=== PATIENT | female | born 2000 | race Caucasian/White ===

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

== ENCOUNTER 2019-04-20 00:11 | Inpatient (IN) | payer OTHER ==
[2019-04-20 00:49] VITALS: BMI 25.6
[2019-04-20] MEDS ORDERED: HYDROcodone/Acetaminophen 5/325 mg Tablet PO PRN ×2 (01:19)
[2019-04-20] MEDS ORDERED: NS / Oxytocin 40 units/1000ml 1,000 ML IV PRN (01:19)
[2019-04-20] MEDS ORDERED: Ondansetron PF 4 MG/2 ML Vial IVP PRN ×2 (01:19→20:58)
[2019-04-20] MEDS ORDERED: Promethazine HCl 25 MG/ML VIAL IM PRN ×2 (01:19→20:58)
[2019-04-20] MEDS ORDERED: hydrALAZINE 20 MG/ML VIAL SLOW IVP PRN (01:19)
[2019-04-20] MEDS ORDERED: Lidocaine 1% (PF) 30 ML VIAL SC PRN (01:19)
[2019-04-20] MEDS ORDERED: Ibuprofen 800 MG TAB PO PRN (01:19)
--- NOTE | 2019-04-20 01:22 | PDOC.LDHP ---
Labor and Delivery H&P HPI: Patient of Crystal Abraham Time: 0115 Triage CC: CTX 18 yo G1 at 38 weeks 3 days with regular CTX every 3 minutes. No LOF, no VB. Good FM. She was 3cm in office previously Review of ZSXS= complete ROS performed and as per HPI. Current gestational age (weeks): 38 (3 D) Due date: 05/01/19 Dating criteria: last menstrual period Grav: 1 Current complications: none Abnormal US findings: No Current medications: pre- vitamins Previous surgical history: none Allergies/Adverse Reactions: Allergies Allergy/AdvReac Type Severity Reaction Status Date / Time No Known Allergies Allergy Verified 04/20/19 00:52 - Physical Exam Vital signs reviewed and normal: yes (116/66 98.4 16) General: NAD Heart: RRR Lungs: CTAB Abdomen: gravid Extremeties: no edema FHT: category 1 [place] contractions every: every 3-5min - Vaginal Exam cm dilated: 4 Effacement: 75% Station: -1 - Assessment L&D Assessment: term patient in labor (At early term, GBS negative) - Plan Plan: admit to L&D, informed consent obtained, anesthesia consult for pain management, other (Crystal Abraham to be notified. We are admitting due to 4cm dilation and regular CTX.)
[2019-04-20 02:31] LABS: Hemoglobin 12.8 g/dL (12.0-16.0); Mean Corpuscular Hemoglobin 32.1 pg (25.0-35.0); Mean Corpuscular Volume 94.2 fL (78.0-98.0); Mean Platelet Volume 8.1 fL (7.4-10.4); Platelet Count 195 thou/uL (130-400); RBC Distribution Width 11.5 % (11.5-14.5); Red Blood Cell (RBC) Count 3.99 mill/uL (4.00-5.20); White Blood Cell (WBC) Count 8.9 thou/uL (4.8-10.8)
[2019-04-20 03:11] LABS: HBSAg Index 0.27 S/CO (0-0.99); HIV (1/2) Antibody/Antigen Non-Reactive (NonReactive); HIV 1/2 INDEX 0.06 S/CO (<1.00); Hep B Surf Ag Non-Reactive S/CO (NonReactive)
[2019-04-20 04:37] LABS: Syphilis Antibody Nonreactive (Nonreactive); Syphilis Antibody Index 0.02 S/CO (<1.00 Non-Reactive)
[2019-04-20] MEDS ORDERED: Lidocaine 2% MPF 10 ML AMP (For Epidural Use) ONE (09:00)
--- NOTE | 2019-04-20 13:01 | PDOC.LDPN ---
Labor & Delivery Progress Note - Subjective Subjective: comfortable - Objective Vital signs reviewed and normal: yes General: breathing through contractions Dilation: 6 Effacement: 75% Station: -1 FHT: category 1 [place] contractions every: q 6-8 mins AROM: clear fluid - Assessment (1) Teen Code(s): [id number] - Current Visit: Yes Status: Acute (2) Anorexia Code(s): R63.0 - ANOREXIA Current Visit: Yes Status: Acute (3) 38 weeks gestation of Code(s): Z3A.38 - 38 WEEKS GESTATION OF Current Visit: Yes Status : Acute Plan: other (AROM )
[2019-04-20] MEDS ORDERED: Oxytocin 10 UNITS/ML VIAL ONE (18:13)
[2019-04-20] MEDS ORDERED: NS w/ Oxytocin 10 units 500 ML IV SCH (18:15)
--- NOTE | 2019-04-20 18:16 | PDOC.LDPN ---
Labor & Delivery Progress Note - Subjective Subjective: comfortable - Objective Vital signs reviewed and normal: yes General: NAD Uterine fundus: non tender Dilation: 6 Effacement: 90% Station: 0 - Assessment (1) Teen Code(s): [id number] - Current Visit: Yes Status: Acute (2) Anorexia Code(s): R63.0 - ANOREXIA Current Visit: Yes Status: Acute (3) 38 weeks gestation of Code(s): Z3A.38 - 38 WEEKS GESTATION OF Current Visit: Yes Status : Acute Plan: labor augmentation, other (cervix is unchanged. Start on pitocin for augmentation)
[2019-04-20] MEDS: Lactated Ringer's 1,000 ML IV SCH (18:26)
[2019-04-20] MEDS ORDERED: Butorphanol Tartrate 1 MG/ML VIAL SLOW IVP PRN (19:24)
[2019-04-20] MEDS ORDERED: Fentanyl 4 mcg/Bup 0.1% Cadd 100 ML ONE (20:12)
[2019-04-20] MEDS ORDERED: Lactated Ringer's 500 ML IV PRN (20:58)
[2019-04-20] MEDS ORDERED: Naloxone HCl 0.4 mg/ml Vial IVP PRN ×2 (20:58)
[2019-04-20] MEDS ORDERED: diphenhydrAMINE 50 MG/ML VIAL IVP PRN (20:58)
[2019-04-20] MEDS ORDERED: Acetaminophen 325 MG TAB PO PRN (20:58)
[2019-04-20] MEDS ORDERED: ePHEDrine/0.9% NaCl/PF SYRINGE 50 mg/10 ml SLOW IVP PRN (20:58)
[2019-04-20] MEDS ORDERED: Fentanyl 4 mcg/Bupivacaine 0.1% Cassette 100 ML EPIDURAL SCH (21:00)
[2019-04-20] MEDS ORDERED: Communication Order-Pharmacy FS SCH (21:00)
--- NOTE | 2019-04-21 | PDOC.OPDEL ---
OB Operative/Delivery Note Delivery Dr/Surgeon: Dotty cortez CNM Pre-Delivery Diagnosis: active labor Procedure/Post Delivery Dx: spontaneous vaginal delivery Weeks gestation: 38 Anesthesia: epidural - Findings A Sex: female - 1 min: 9 - 5 min: 9 - Additional Findings/Plan Placenta delivered: spontaneous Repaired Obstetrical Laceration: none Estimated blood loss: 50mL Post delivery plan: routine recovery
--- NOTE | 2019-04-21 00:42 | PDOC.PP ---
Post Progress Note Post Day #: 1 Subjective: Patient is doing well. Feeling in leg is coming back after epidural. has not breastfed yet. PO intake tolerated: yes Weight Weight 140 lb - Physical Examination General: NAD Cardiovascular: no m/r/g Respiratory: non-labored breathing Abdominal: lochia (moderate, rubra) Fundus firm & at: u Extremities: negative homans (B) Skin: no rash Neurological: no gross focal deficits Psychiatric: A&Ox3, normal affect Result Diagrams: 04/20/19 02:15 Additional Labs: Post Labs Blood Type A POSITIVE 04/20/19 03:14 Hep Bs Antigen Non-Reactive S/CO (NonReactive) 04/20/19 02:15 (1) Teen Code(s): [id number] - Status: Acute (2) Anorexia Code(s): R63.0 - ANOREXIA Status: Acute (3) 38 weeks gestation of Code(s): Z3A.38 - 38 WEEKS GESTATION OF Status: Acute - Assessment/Plan A: with NML ppd1 exam s/p P: routine care.
[2019-04-21] MEDS ORDERED: Milk Of Magnesia 30 ML UDCUP PO PRN (03:04)
[2019-04-21] MEDS ORDERED: Methylergonovine 0.2 MG/ML VIAL IM PRN (03:04)
[2019-04-21] MEDS ORDERED: HYDROcodone/Acetaminophen 5/325 mg Tablet PO PRN (03:04)
[2019-04-21] MEDS ORDERED: Bisacodyl 10 MG SUPP PR PRN (03:04)
[2019-04-21] MEDS ORDERED: Benzocaine-Menthol 82.5 ML CAN TOP PRN (03:04)
[2019-04-21] MEDS ORDERED: hydrALAZINE 20 MG/ML VIAL SLOW IVP PRN (03:04)
[2019-04-21] MEDS ORDERED: NS / Oxytocin 40 units/1000ml 1,000 ML IV SCH (03:04)
[2019-04-21] MEDS ORDERED: Ondansetron PF 4 MG/2 ML Vial IVP PRN (03:04)
[2019-04-21] MEDS: Ibuprofen 800 MG TAB PO SCH ×3 (05:39→21:12)
[2019-04-21] MEDS ORDERED: Adacel (T-DAP) 0.5 ML SYRINGE IM ONE (09:00)
[2019-04-21] MEDS: Prenatal Vitamin 1 TAB PO SCH (09:18)
[2019-04-21] MEDS: Ferrous Sulfate 325 MG TAB PO SCH ×2 (09:18→17:47)
[2019-04-21] MEDS: Docusate Calcium (SURFAK) 240 MG CAP PO SCH ×2 (09:18→21:12)
[2019-04-21] MEDS: Lactated Ringer's 1,000 ML IV SCH ×2 (09:48→14:18)
[2019-04-21] MEDS: HYDROcodone/Acetaminophen 5/325 mg Tablet PO PRN (17:45)
[2019-04-22] MEDS: HYDROcodone/Acetaminophen 5/325 mg Tablet PO PRN ×3 (00:19→09:06)
[2019-04-22] MEDS: Ibuprofen 800 MG TAB PO SCH ×2 (06:15→17:00)
[2019-04-22] MEDS: Docusate Calcium (SURFAK) 240 MG CAP PO SCH (09:06)
[2019-04-22] MEDS: Prenatal Vitamin 1 TAB PO SCH (09:06)
--- NOTE | 2019-04-22 09:36 | PDOC.EVN ---
Event Note - Event Note Event Note: Called by PP RN. Here x2 midnights, baby has been DC. VSS AF. Plan: DC home, precautions, RTC 6 weeks with [place].
[2019-04-22] MEDS: Ferrous Sulfate 325 MG TAB PO SCH (10:21)
[2019-04-22 20:38] VITALS: BP 119/60; TEMP 98.5
== END 2019-04-22 21:05 | disposition home or self-care (01) | DRG 807 ==
LOC: L&D/OP 00:11 → L&D-LIB 02:01 → L&D 18:09 → 3SW 04-21 02:52
PROVIDERS: ADMIT Student in an Organized Health Care Education/Training Program; ATTEND Student in an Organized Health Care Education/Training Program
PROC: 10E0XZZ Delivery of Products of Conception, External Approach (ICD-10-PCS; principal; 2019-04-20)
PROC: 10907ZC Drainage of Amniotic Fluid, Therapeutic from Products of Conception, Via Natural or Artificial Opening (ICD-10-PCS; 2019-04-20)
DX: O99.89 Other specified diseases and conditions complicating pregnancy, childbirth and the puerperium (principal); Z37.0 Single live birth; R63.0 Anorexia; Z3A.38 38 weeks gestation of pregnancy
CPT/HCPCS: 36415; 51702; 85027; 86780; 86850; 86900; 86901; 87340; 87389; 99285; J0595; J2001; J2590

== ENCOUNTER 2023-04-06 11:12 | Emergency (ER) | payer MEDICAID, SELFPAY ==
[2023-04-06] MEDS ORDERED: Ketorolac Tromethamine 30 MG/ML VIAL ONE (13:22)
== END 2023-04-06 13:55 | disposition home or self-care (01) ==
LOC: ERS 11:12
DX: M62.838 Other muscle spasm (principal); G62.9 Polyneuropathy, unspecified
CPT/HCPCS: 93005; 96372; J1885